=== PATIENT | male | born 1970 | race Caucasian/White ===

== ENCOUNTER 2018-02-05 05:43 | Emergency (ER) | payer MEDICAID ==
[~2018-02-05] VITALS: Ht 182.9 cm; Wt 63.6 kg
[~2018-02-05 05:43] MED LIST: OMEP20TA23 PO; PROP10TA10 PO; SPIR25TA3 PO
[2018-02-05 05:47] VITALS: BP 128/71
[2018-02-05] MEDS ORDERED: CLIN-79 PO (06:18)
[2018-02-05] MEDS ORDERED: CEPH500C5 PO (06:18)
== END 2018-02-05 06:26 | disposition home or self-care (01) ==
LOC: ER 05:44
DX: L03.211 Cellulitis of face (principal); L03.119 Cellulitis of unspecified part of limb; L03.317 Cellulitis of buttock; F15.90 Other stimulant use, unspecified, uncomplicated; J44.9 Chronic obstructive pulmonary disease, unspecified; Z88.2 Allergy status to sulfonamides; Z88.5 Allergy status to narcotic agent; Z88.6 Allergy status to analgesic agent; Z79.899 Other long term (current) drug therapy; Z59.0 Homelessness; Z56.0 Unemployment, unspecified; Z60.2 Problems related to living alone
CPT/HCPCS: 99283

== ENCOUNTER 2019-02-13 20:32 | Emergency (ER) | payer MEDICAID ==
[~2019-02-13] VITALS: Ht 182.9 cm; Wt 68.0 kg
[~2019-02-13 20:32] MED LIST changes: +CLIN150C8 PO; -SPIR25TA3 PO; +SPIR25TA5 PO
[2019-02-13 20:39] VITALS: BP 135/102
== END 2019-02-13 23:35 | disposition left against medical advice (07) ==
LOC: ER 20:33
DX: R22.1 Localized swelling, mass and lump, neck (principal); Z53.21 Procedure and treatment not carried out due to patient leaving prior to being seen by health care provider

== ENCOUNTER 2019-07-28 16:28 | Emergency (ER) | payer MEDICAID ==
[~2019-07-28] VITALS: Ht 182.9 cm; Wt 64.9 kg
[2019-07-28 17:09] LABS: BASOPHILS # (AUTO) 0.1 X10'3 (0-0.2); BASOPHILS % (AUTO) 0.5 % (0-1); EOSINOPHILS # (AUTO) 0.1 X10'3 (0-0.9); EOSINOPHILS % (AUTO) 0.7 % (0-6); HEMATOCRIT 35.2 % (42.0-52.0); HEMOGLOBIN 11.9 g/dl (14.0-17.9); LYMPHOCYTES % (AUTO) 9.9 % (21-51); MEAN CORPUSCULAR HEMOGLOBIN 31.3 PG (27.0-31.0); MEAN CORPUSCULAR HGB CONC 33.7 g/dL (33.0-36.5); MEAN CORPUSCULAR VOLUME 92.9 FL (78-98); MEAN PLATELET VOLUME 7.7 FL (7.4-10.4); MONOCYTES # (AUTO) 1.4 X10'3 (0-0.9); NEUTROPHILS # (AUTO) 16.6 X10'3 (1.8-7.7); NEUTROPHILS % (AUTO) 81.9 % (42-75); PLATELET COUNT 340 X10'3 (140-440); RED BLOOD COUNT 3.79 X10'6 (4.70-6.10); RED CELL DISTRIBUTION WIDTH 13.7 % (11.5-14.5); WHITE BLOOD COUNT 20.3 X10'3 (4.5-11.0)
[2019-07-28 17:19] LABS: PARTIAL THROMBOPLASTIN TIME 34 SECONDS (22-32)
[2019-07-28 17:23] LABS: ALANINE AMINOTRANSFERASE 35 U/L (12-78); ALBUMIN 3.4 G/DL (3.4-5.0); ALBUMIN/GLOBULIN RATIO 0.7 (1.1-1.5); ALKALINE PHOSPHATASE 88 IU/L (46-116); ANION GAP 11 (8-16); ASPARTATE AMINO TRANSFERASE 28 U/L (10-37); BILIRUBIN,TOTAL 0.5 MG/DL (0.1-1.0); BLOOD UREA NITROGEN 23 MG/DL (7-18); BUN/CREATININE RATIO 26.7 (5.4-32.0); CALCIUM 9.1 MG/DL (8.5-10.1); CHLORIDE 99 MMOL/L (99-107); CREATININE 0.86 MG/DL (0.60-1.10); GLUCOSE 104 MG/DL (70-104); POTASSIUM 3.7 MMOL/L (3.5-5.1); SODIUM 135 MMOL/L (135-145); TOTAL CARBON DIOXIDE 24.6 MMOL/L (24-32); TOTAL PROTEIN 8.2 G/DL (6.4-8.2); eGFR > 90 ML/MIN
[2019-07-28] MEDS ORDERED: methylPREDNISolone sod succ 125mg/2ml vial IV ONE (17:35)
[2019-07-28] MEDS ORDERED: ipratropium/albuterol 3ml nebule NEB ONE (17:35)
[2019-07-28] MEDS ORDERED: normal saline 1000ML IV soln IVB ONE (17:35)
[2019-07-28] MEDS ORDERED: PRED20TA PO (17:40)
[2019-07-28] MEDS ORDERED: ALBU6.7H9 INH (17:40)
[2019-07-28] MEDS ORDERED: AMOX-419 PO (17:40)
[2019-07-28] MEDS ORDERED: GUAI120015 PO (17:40)
[2019-07-28 17:59] LABS: ETHANOL < 0.010 GM/DL (0.0-0.010)
[2019-07-28 19:04] VITALS: BP 133/106
== END 2019-07-28 19:06 | disposition home or self-care (01) ==
LOC: ER 16:28
DX: J44.1 Chronic obstructive pulmonary disease with (acute) exacerbation (principal); J20.9 Acute bronchitis, unspecified; F15.90 Other stimulant use, unspecified, uncomplicated; F17.200 Nicotine dependence, unspecified, uncomplicated; Z59.0 Homelessness; Z56.0 Unemployment, unspecified; Z88.5 Allergy status to narcotic agent; Z88.6 Allergy status to analgesic agent; Z88.1 Allergy status to other antibiotic agents; Z79.899 Other long term (current) drug therapy
CPT/HCPCS: 36415; 71045; 80053; 80320; 83605; 84145; 84484; 85025; 85610; 85730; 87040; 93005; 94640; 94760; 96374; 99284; J2930; J7030

== ENCOUNTER 2024-08-25 16:58 | Emergency (ER) | payer MEDICAID ==
[~2024-08-25] VITALS: Ht 182.9 cm; Wt 63.2 kg
[~2024-08-25 16:58] MED LIST changes: +ALBU6.7H14 INH; +CLIN-214 PO; -CLIN150C8 PO; +GUAI120015 PO
[2024-08-25] MEDS ORDERED: BENZ-38 PO (19:22)
[2024-08-25] MEDS ORDERED: PRED20TA PO (19:22)
[2024-08-25] MEDS ORDERED: PROM118S5 PO (19:22)
[2024-08-25 19:44] VITALS: BP 128/86; PULSE 88; RESP 18; TEMP 98.2; O2SAT 98
== END 2024-08-25 19:49 | disposition home or self-care (01) ==
LOC: ER 16:59
DX: J11.1 Influenza due to unidentified influenza virus with other respiratory manifestations (principal); Z20.822 Contact with and (suspected) exposure to COVID-19; J44.9 Chronic obstructive pulmonary disease, unspecified; Z88.5 Allergy status to narcotic agent; Z88.1 Allergy status to other antibiotic agents; Z88.2 Allergy status to sulfonamides
CPT/HCPCS: 36415; 71045; 87502; 87503; 87811; 99284